=== PATIENT | female | born 2000 | race Caucasian/White ===

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

== ENCOUNTER 2020-04-12 13:39 | Inpatient (IN) | payer OTHER ==
[~2020-04-12] VITALS: Ht 162.6 cm; Wt 85.5 kg
[~2020-04-12 13:39] MED LIST: ABIL1TAB11 PO; BUPR15TA PO; ONDA4TAB6 PO
[2020-04-12] MEDS ORDERED: SERT25TA85 PO (13:51)
[2020-04-12 15:33] LABS: HEMOGLOBIN 13.5 g/dl (12.0-15.5); MEAN CORPUSCULAR HEMOGLOBIN 29.8 pg (27.0-33.0); MEAN CORPUSCULAR HGB CONC 32.9 g/dl (32.0-36.5); MEAN CORPUSCULAR VOLUME 90.5 fl (80.0-96.0); PLATELET COUNT, AUTOMATED 306 10^3/uL (150-450); RED BLOOD COUNT 4.53 10^6/uL (4.00-5.40); WHITE BLOOD COUNT 11.3 10^3/uL (4.0-10.0)
[2020-04-12 15:48] LABS: AMPHETAMINES LEVEL URINE NEGATIVE (NEGATIVE); BARBITURATES URINE NEGATIVE (NEGATIVE); BENZODIAZEPINES URINE NEGATIVE (NEGATIVE); CANNABINOIDS URINE NEGATIVE (NEGATIVE); COCAINE METABOLITE URINE NEGATIVE (NEGATIVE); METHADONE URINE NEGATIVE (NEGATIVE); OPIATES URINE NEGATIVE (NEGATIVE); PHENCYCLIDINE URINE NEGATIVE (NEGATIVE)
[2020-04-12 16:00] LABS: ACETAMINOPHEN LEVEL < 2.0 UG/ML (10.0-30.0); ALBUMIN 3.8 GM/DL (3.2-5.2); ALT/SGPT 75 U/L (12-78); BILIRUBIN,DIRECT 0.2 MG/DL (0.0-0.2); BILIRUBIN,TOTAL 0.4 MG/DL (0.2-1.0); BLOOD UREA NITROGEN 16 MG/DL (7-18); CALCIUM LEVEL 9.1 MG/DL (8.5-10.1); CARBON DIOXIDE LEVEL 24 MEQ/L (21-32); CHLORIDE LEVEL 105 MEQ/L (98-107); CREATININE FOR GFR 0.75 MG/DL (0.55-1.30); ETHYL ALCOHOL (ETHANOL) 0.006 % (0.000-0.010); GLUCOSE, FASTING 79 MG/DL (70-100); POTASSIUM SERUM 4.1 MEQ/L (3.5-5.1); SALICYLATE LEVEL < 1.7 MG/DL (5.0-30.0); SODIUM LEVEL 138 MEQ/L (136-145); THYROID STIMULATING HORMONE 0.749 uIU/ML (0.463-3.98); TOTAL PROTEIN 7.6 GM/DL (6.4-8.2)
[2020-04-12 16:01] LABS: HCG, SERUM QUALITATIVE NEGATIVE (NEGATIVE)
--- NOTE | 2020-04-12 16:50 | ECGEPIP ---
[facility] - ED Test Date: 2020-04-12 Pat Name: MAXIM PA Department: Room: - Gender: Female Helper Animal Laboratory: MIMI : 2000 Requested By: KEVIN Cabrera Order Number: [id number] Reading MD: Migue Valentine Measurements Intervals [place] Rate: 79 P: 46 CT: 122 QRS: 66 QRSD: 91 T: 62 QT: 361 QTc: 414 Interpretive Statements SINUS RHYTHM WITH SINUS ARRHYTHMIA Comparison tracing not on file Electronically Signed on 04-12-2020 16:50:24 EST by Migue Valentine
[2020-04-12] MEDS ORDERED: SERTRALINE HCL 25 MG TABLET PO ONE (20:00)
[2020-04-13] MEDS ORDERED: MAALOX 30 ML SUSP *UDC PO PRN (15:15)
[2020-04-13] MEDS ORDERED: ACETAMINOPHEN TAB 650MG DOSE (2X325MG) PO PRN (15:15)
[2020-04-13] MEDS ORDERED: MOM 30ML SUSPENSION UDC PO PRN (15:15)
[2020-04-13 16:26] VITALS: BP 127/75
[2020-04-13] MEDS: traZODone 50 MG TAB PO PRN (20:13)
[2020-04-13] MEDS ORDERED: SERTRALINE HCL 25 MG TABLET PO SCH (21:00)
[2020-04-14 06:47] VITALS: BP 125/66
[2020-04-14] MEDS ORDERED: INFLUENZA QUADRIVALENT PF VACCINE 0.5ML SYRINGE IM ONE (09:00)
--- NOTE | 2020-04-14 11:13 | MHHPEPDOC ---
[facility] History & Physical History and Physical DATE OF ADMISSION: Apr 13, 2020 at 15:09 HPI: The patient was admitted to the inpatient mental health unit after she had reportedly become stressed after her returned from deployment. She reported that she became stressed and upset about the various emotional needs that he had brought in to their home. She reported that she became suicidal briefly and was brought in for admission. She reports some difficulties prima rily since he returned with low mood, loss of Interest, insomnia, and difficulty adjusting to stress. Screen is negative for bipolar disorder and psychotic disorder as well as PTSD. Past Med,fm and sochx She has no previous psychiatric history other than treatment with Abilify and Sertraline by primary care. Denies a history of inpatient admissions in the recent past. No suicide attempts prior. Family history non-contributory. Social history lives with whos in the who recently came back from a 6-month deployment. Denies any substance use at this time. Objective Appearance: Well nourished. Appears to be stated age. Well groomed. Hygiene fair. Affect: Appropriate to context. Mildy dysthymic. Full range. Speech: Spontaneous and Fluid. Normal volume. Normal rate. Thought Form: Linear and goal directed. Logical. Associations intact. Thought Content: No evidence of aggressive or homicidal ideation. No evidence of delusions. Denies auditory or visual hallucinations. No thoughts of self harm. No evidence of suicidal ideation. Judgement: Fair. Insight: Fair. Assessment F43.24 Adjustment disorder with disturbance of conduct Plan Plan is to increase Sertraline to 50 mg daily, continue Abilify 5 mg as well. Will observe overnight. Patient is interested in being discharged. Discussed with patient about coming up with a discreet action plan to help mitigate the difficulties of her home life, to help reduce the chance of need for readmission or further suicidal thoughts. She was amenable to this and engaged. Treatment priorities are one risk for suicide and two, ineffective coping. Estimated length of stay is one to two days. Vital Signs Vital Signs Date Time Temp Pulse Resp B/P (MAP) Pulse Ox O2 Delivery O2 Flow Rate FiO2 04/14/20 08:11 Room Air 04/14/20 06:47 98.2 83 16 125/66 (85) 97 Medications Scheduled Aripiprazole (Abilify) 5 Mg Tablet, 5 MG PO QHS, (Reported) Sertraline HCl (Sertraline HCl) 50 Mg Tablet, 50 MG PO QHS for mood Allergies Coded Allergies: No Known Allergies (Unverified , 07/19/19) GREGORY WISE DO Apr 14, 2020 11:13
--- NOTE | 2020-04-14 13:00 | HPEPDOC ---
[facility] Medical History & Physical Date of Admission Apr 14, 2020 Date of Service: Apr 14, 2020 History and Physical CHIEF COMPLAINT: Suicidal ideation HISTORY OF PRESENT ILLNESS: Material female admitted to [facility], for suicidal ideation. She denies active suicidal ideation at the time of examinat ion. Hospital services consulted for medical comanagement. Patient presented to ED with depressed mood, had plan to overdose on OTC medications. Has been having difficulties with anxiety and marital problems. [place], she has difficulties adjusting. Patient denies chest pain, shortness of breath, fever, chills, nausea, vomiting, diarrhea. She reports a family history of colon cancer in her father in his early 40s. PAST MEDICAL HISTORY: Depression. PAST SURGICAL HISTORY: No prior surgical history SOCIAL HISTORY: Patient denies smoking Patient denies etoh use Patient denies illicit drug use FAMILY HISTORY: Colon cancer in father in early 40s ALLERGIES: Please see below. REVIEW OF SYSTEMS: CONSTITUTIONAL: patient denies fevers, chills HEENT: patient denies blurred vision, loss of vision, headache,. CARDIOVASCULAR: patient denies chest pain, palpitations. RESPIRATORY: patient denies shortness of breath, cough, hemoptysis. GASTROINTESTINAL: patient denies abdominal pain, n/v/d, blood in stool. GENITOURINARY: patient denies dysuria, discharge. SKIN: patient denies rashes. MUSCULOSKELETAL: patient denies joint pain, neck pain. NEUROLOGICAL: patient denies focal weakness, numbness, seizures. PSYCHIATRIC: Admitted for suicidal ideation, however, denies active SI at this time ENDOCRINE: patient denies polyuria, heat intolerance, cold intolerance. HEMATOLOGIC/LYMPHATIC: patient denies easy bruising.. HOME MEDICATIONS: Please see below. PHYSICAL EXAMINATION: VITAL SIGNS: please see below General: NAD, comfortable HEENT: PERRLA, EOMI, sclerae clear Neck: supple, normal ROM, no JVD Respiratory: lungs CTAB, no wheeze, no rales, no crackles CVS: RRR, normal S1, S2, no murmurs Abdo: soft, no masses, no hepatosplenomegaly, BS+, no rebound tenderness Extremities: no edema, pulses 2+ MSK: no joint deformities, normal ROM Neuro: no focal neuro deficits, moving all 4 extremities, CN2-12 intact. Strength 5/5 in all 4 extremities. No nystagmus. Psych: calm, cooperative, AAO x 3 LABORATORY DATA: See below. MICROBIOLOGY: Please see below. ASSESSMENT: 19-year-old female admitted to behavioral health unit for suicidal ideation. Hospitalist consulted for medical comanagement PLAN: Suicidal ideation: Per psychiatry History of colon cancer: patient's father dx early 40s. Patient will need colonoscopy in early 30s. PCP follow up. I discussed with with patient, she understood importance of early detection. DVT ppx: ambulation. Vital Signs Vital Signs Date Time Temp Pulse Resp B/P (MAP) Pulse Ox O2 Delivery O2 Flow Rate FiO2 04/14/20 08:11 Room Air 04/14/20 06:47 98.2 83 16 125/66 (85) 97 Home Medications Scheduled Aripiprazole (Abilify) 5 Mg Tablet, 5 MG PO QHS Sertraline Hcl (Sertraline HCl) 25 Mg Tablet, 25 MG PO QHS Allergies Coded Allergies: No Known Allergies (Unverified , 07/19/19) A-FIB/CHADSVASC A-FIB History Current/History of A-Fib/PAF?: No Current PO Anticoag Therapy: No ADALBERTO BOB MD Apr 14, 2020 13:00
[2020-04-14 17:27] VITALS: BP 110/63
[2020-04-14] MEDS: traZODone 50 MG TAB PO PRN (20:32)
[2020-04-14] MEDS ORDERED: SERTRALINE HCL 50 MG TAB PO SCH (21:00)
[2020-04-15 06:53] VITALS: BP 107/63
--- NOTE | 2020-04-15 10:16 | MHDSPDOC ---
[facility] Discharge Summary Discharge Summary DATE OF ADMISSION: Apr 13, 2020 at 15:09 DATE OF DISCHARGE:Apr 15, 2020 at 13:28 DISCHARGE DIAGNOSES: F43.24 Adjustment disorder with disturbance of conduct CONSULTANTS INVOLVED:[ None (basic hospitalist screening)] REASON FOR ADMISSION & TREATMENT AND PROGRESS ON THE UNIT : Bennett presented to the inpatient mental health unit after having suicidal thoughts. She began these suicidal thoughts after she had recently had her return from deployment. Her suicidal ideation had resolved quite quickly. Discussed witht he patient to talk to about the salient issues relating to her admission, and come up with a plan for how to avoid the situation that lead to her admission. She was able work with her . MEDICATIONS: She resumed on home medications of Abilify 5 mg and Zoloft 25 mg started by primary care. DISCHARGE ASSESSMENT[improved] Legal status considerations: The patient at the time of discharge did not meet criteria for involuntary admission/extension due to having a [normal] mental status exam, [fair] insight into the situation, They are engaged in the discharge process, as well as being friendly and amenable in behavioral control and havent been engaging in any observed concerning behavior or ideation recently. They decline voluntary extension/admission at this time and must be discharged in good chilango, as Im unable to make a case for holding the patient against their will. They may have historical risk factors of admissions and other interactions with psychiatry however, those are not modifiable from a clinical perspective. The patient will need to be discharged in good chilango. MENTAL STATUS EXAMINATION ON DISCHARGE: [General: Well dressed with good hygiene Speech: Spontaneous and fluid Thought processes: Linear and logical Thought content: Future orientated Abstract reasoning, and computation: Intact Description of associations: Intact Description of abnormal or psychotic thoughts:Denies any suicidal or homicidal ideation. Denies any auditory or visual hallucinations. Does not appear to be responding to internal stimuli. Does not appear to be endorsing any bizarre or paranoid ideation. Judgment: fair Insight: fair Orientation: Alert and orientated 3 Recent and remote memory: Intact Attention span and concentration: Intact Fund of knowledge: Adequate Mood: "okay" Affect: Euthymic with a full range] PLAN/FOLLOWUP ARRANGEMENTS: Follow up appointments made (PCP and MH in 5 days of D/C date) and safety plan completed. Safety Planning aspects completed prior to discharge [Family contact completed, educated on safe practices, instructed on removal and mitigation of dangerous means] [RN reviewed crisis hotline information and other aspects to empower patient to access care in interim before next appointment.] The amount of time spent in the coordination of care for this patient was approximately 30 minutes. Vital Signs/I&Os Vital Signs Date Time Temp Pulse Resp B/P (MAP) Pulse Ox O2 Delivery O2 Flow Rate FiO2 04/15/20 06:53 97.8 87 14 107/63 (78) 98 Room Air Medications Scheduled Aripiprazole (Abilify) 5 Mg Tablet, 5 MG PO QHS, (Reported) Sertraline HCl (Sertraline HCl) 50 Mg Tablet, 50 MG PO QHS for mood for 7 Days, #7 Allergies Coded Allergies: No Known Allergies (Unverified , 07/19/19) GREGORY WISE DO Apr 15, 2020 10:16
[2020-04-15] MEDS ORDERED: SERT50TA29 PO (12:15)
== END 2020-04-15 13:28 | disposition home or self-care (01) | DRG 882 ==
LOC: M ED 13:39 → M ED INP 04-13 15:09 → M PSY 04-13 16:05
PROVIDERS: ADMIT Psychiatry & Neurology Addiction Medicine; ATTEND Psychiatry & Neurology Addiction Medicine
DX: F43.24 Adjustment disorder with disturbance of conduct (principal); R45.851 Suicidal ideations; Z79.899 Other long term (current) drug therapy; Z00-Z99 Factors influencing health status and contact with health services